=== PATIENT | male | born 1945 | race Caucasian/White ===

== ENCOUNTER 2021-01-09 19:36 | Emergency (ER) | payer MEDICARE, OTHER ==
[~2021-01-09] VITALS: Ht 180.3 cm; Wt 95.9 kg
--- NOTE | 2021-01-09 19:51 | NUR ---
BIB EMS FROM [facility] AND [facility]. PER EMS PT HAS UTI AND HAS HAD INCREASED CONFUSION. PT CURRENTLY A/O TO SELF AND TIME. PT CONFUSED ABOUT SITUATION AND THINKS HE IS IN HOTEL. 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 PT LAYING IN GURNEY, DROWSY. PT SUPPOSIDLY TO BE D/C FROM [facility] TOMORROW. PT HAS RECIEVED ABOUT 50 ML NS AND NO OTHER INTERVENTIONS.
[2021-01-09 21:13] LABS: BASOPHILS % (AUTO) 1 % (0-1); EOSINOPHILS % (AUTO) 0 % (1-7); LYMPHOCYTES % (AUTO) 5 % (22-44); MEAN CORPUSCULAR HEMOGLOBIN 33.7 pg (27.5-34.5); MEAN CORPUSCULAR HGB CONC 33.3 g/dL (33.2-36.2); MEAN PLATELET VOLUME 7.2 fL (7.4-10.4); MONOCYTES % (AUTO) 6 % (2-9); NEUTROPHILS % (AUTO) 88 % (42-75); PLATELET COUNT 280 x10^3/uL (130-400); RED BLOOD COUNT 4.16 x10^6/uL (4.38-5.82); RED CELL DISTRIBUTION WIDTH 15.8 % (9.4-14.8)
[2021-01-09 21:24] LABS: ALANINE AMINOTRANSFERASE 47 U/L (12-78); ALBUMIN 1.8 g/dL (3.4-5.0); ANION GAP 5 mmol/L (5-15); CALCIUM 10.1 mg/dL (8.5-10.1); CHLORIDE 112 mmol/L (98-107); CREATININE 0.87 mg/dL (0.7-1.3)
[2021-01-09 21:26] LABS: ALKALINE PHOSPHATASE 140 U/L (45-117)
[2021-01-09 21:38] LABS: MD SCAN
--- NOTE | 2021-01-09 21:45 | NUR ---
PT UNABLE TO URINATE, BLADDER SCAN SHOWED 326 ML, STRAIGHT CATH PER ERP (450ML OUT). 0ML POST VOID RESIDUAL. ASEPTIC TECHNIQUE MAINTAINED THROUGHOUT
[2021-01-09 22:00] LABS: MICROSCOPIC AUTO
--- NOTE | 2021-01-09 22:38 | NUR ---
PT RESTING IN GURNEY, PT'S DIAPER TAKEN OFF EARLIER AND PT WAS CLEANED UP FROM A BM. 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
[2021-01-09] MEDS ORDERED: SERT50TA28 PO (22:46)
[2021-01-09] MEDS ORDERED: ALLO100T30 PO (22:46)
[2021-01-09] MEDS ORDERED: SITA50TA PO (22:46)
[2021-01-09] MEDS ORDERED: CHOL10003 PO (22:46)
[2021-01-09] MEDS ORDERED: MIRT15TA94 PO (22:46)
[2021-01-09] MEDS ORDERED: MELA10CA PO (22:46)
[2021-01-09] MEDS ORDERED: SULF1TAB24 PO (22:46)
[2021-01-09] MEDS ORDERED: TAMS-11 PO (22:46)
[2021-01-09] MEDS ORDERED: OMEP-110 PO (22:46)
[2021-01-09] MEDS ORDERED: ATOR20TA37 PO (22:46)
[2021-01-09] MEDS ORDERED: METO25TA91 PO (22:46)
[2021-01-09] MEDS ORDERED: OMNIPAQUE 350 MG/ML, 100ML BOTTLE ONE (23:02)
--- NOTE | 2021-01-09 23:30 | NUR ---
PT TO CT
--- NOTE | 2021-01-09 23:48 | NUR ---
PT BACK FROM CT, ON ALL MONITORS, NO OTHER NEEDS AT THIS TIME
[2021-01-10 00:33] LABS: TROPONIN I < 0.015 ng/mL (0.000-0.045)
[2021-01-10] MEDS ORDERED: SODIUM CHLORIDE 0.9% 1,000ML IVBOLUS ONE (01:00)
[2021-01-10] MEDS ORDERED: PIPERACILLIN/TAZO/PMX 3.375GM 50 ML IV ONE (01:00)
[2021-01-10] MEDS ORDERED: PIPERACILLIN/TAZO/PMX 3.375GM 50 ML ONE (01:14)
[2021-01-10 01:33] VITALS: BP 116/83
--- NOTE | 2021-01-10 02:20 | NUR ---
report given to janet lara
== END 2021-01-09 23:54 ==
LOC: ED 23:25 → UNDOADMIN 01-10 00:34 → EDIP 01-10 00:34 → UNDOADMIN 01-10 18:40 → ORIP 01-10 18:40
DX: G93.0 Cerebral cysts (principal); K56.41 Fecal impaction; D72.829 Elevated white blood cell count, unspecified; R10.11 Right upper quadrant pain; J90 Pleural effusion, not elsewhere classified; A41.9 Sepsis, unspecified organism; K81.9 Cholecystitis, unspecified; R41.82 Altered mental status, unspecified; G89.29 Other chronic pain
CPT/HCPCS: 36415; 70450; 71045; 71260; 74177; 80053; 81001; 83690; 85025; 93005; 99285; Q9967; 83605; 84145; 84484; 87040; J2543; J7030; U0003